=== PATIENT | female | born 1945 | race Caucasian/White ===

== ENCOUNTER → 2022-03-01 11:34 | Outpatient (CLI) | payer MEDICARE, SELFPAY ==
[2022-03-01 18:36] LABS: Add Manual Diff / Slide Review NO; Basophils Absolute Auto 0 /uL (0-100); Basophils Percent Auto 0.9 % (0-2); Eosinophils Absolute Auto 200 /uL (0-450); Eosinophils Percent Auto 3.6 % (2-4); Hematocrit 43.7 % (36-46); Hemoglobin 14.8 g/dL (12.0-16.0); Lymphocytes Absolute Auto 1600 /uL (1100-4500); Mean Corpuscular HGB Conc 33.9 % (30-36); Mean Corpuscular Hemoglobin 31.9 PG (26-34); Monocytes Absolute Auto 400 /uL (0-900); Monocytes Percent Auto 6.7 % (3-14); Neutrophils Absolute Auto 3200 /uL (1500-7000); Neutrophils Percent Auto 59.8 % (50-75); Platelet Count 267 X10^3/uL (150-400); Red Blood Cell Count 4.65 X10^6/uL (4.0-5.2); White Blood Cell Count 5.4 X10^3/uL (4.5-11.0)
[2022-03-01 18:43] LABS: Alanine Aminotransferase 16 IU/L (<35); Albumin 3.6 g/dL (3.5-5.0); Albumin Globulin Ratio 1.1 (1.0-2.8); Alkaline Phosphatase 98 U/L (38-126); Aspartate Aminotransferase 26 IU/L (14-36); BUN Creatinine Ratio 11.3 (6-22); Bilirubin Total 0.6 mg/dL (0.2-1.3); Blood Urea Nitrogen 11 mg/dL (7-17); Calcium 9.2 mg/dL (8.4-10.2); Carbon Dioxide 25 mmol/L (22-32); Chloride 107 mmol/L (98-107); Cholesterol 222 mg/dL (140-199); Estimated Glomerular Filt Rate 55.8 mL/min (>60); Globulin 3.2 g/dL (1.7-4.1); Glucose 99 mg/dL (80-110); HDL Cholesterol 84 mg/dL (40-60); HEMOLYSIS < 15 (0-50); LDL Cholesterol Calculated 119 mg/dL (<100); Potassium 4.5 mmol/L (3.4-5.1); Sodium 140 mmol/L (137-145); Total Protein 6.8 g/dL (6.3-8.2); Triglycerides 93 mg/dL (35-150)
== END ==
PROVIDERS: PCP Physician Assistant; Referring Provider Physician Assistant; Visit Provider Physician Assistant
DX: Z13.220 Encounter for screening for lipoid disorders (principal); F33.9 Major depressive disorder, recurrent, unspecified; R03.0 Elevated blood-pressure reading, without diagnosis of hypertension
CPT/HCPCS: 80053; 80061; 85025

== ENCOUNTER → 2023-02-08 11:53 | Outpatient (CLI) | payer MEDICARE, SELFPAY ==
[2023-02-08 19:47] LABS: Alanine Aminotransferase 20 IU/L (<35); Albumin 3.6 g/dL (3.5-5.0); Albumin Globulin Ratio 1.1 (1.0-2.8); Alkaline Phosphatase 113 U/L (38-126); Aspartate Aminotransferase 26 IU/L (14-36); BUN Creatinine Ratio 12.4 (6-22); Bilirubin Total 0.6 mg/dL (0.2-1.3); Blood Urea Nitrogen 12 mg/dL (7-17); Calcium 9.4 mg/dL (8.4-10.2); Carbon Dioxide 30 mmol/L (22-32); Chloride 103 mmol/L (98-107); Estimated Glomerular Filt Rate > 60 mL/min (>60); Globulin 3.3 g/dL (1.7-4.1); Glucose 89 mg/dL (80-110); HEMOLYSIS < 15 (0-50); Potassium 4.4 mmol/L (3.4-5.1); Sodium 139 mmol/L (137-145); Total Protein 6.9 g/dL (6.3-8.2)
== END ==
PROVIDERS: PCP Physician Assistant; Visit Provider Physician Assistant
DX: F33.9 Major depressive disorder, recurrent, unspecified (principal); R03.0 Elevated blood-pressure reading, without diagnosis of hypertension
CPT/HCPCS: 80053

== ENCOUNTER → 2023-04-03 11:55 | Outpatient (CLI) | payer MEDICARE, SELFPAY ==
[2023-04-03 19:54] LABS: Add Manual Diff / Slide Review NO; Basophils Absolute Auto 0 /uL (0-100); Basophils Percent Auto 0.9 % (0-2); Eosinophils Absolute Auto 200 /uL (0-450); Hematocrit 42.9 % (36-46); Hemoglobin 14.6 g/dL (12.0-16.0); Lymphocytes Absolute Auto 1500 /uL (1100-4500); Lymphocytes Percent Auto 27.4 % (25-40); Mean Corpuscular Hemoglobin 31.6 PG (26-34); Mean Corpuscular Volume 92.9 fL (80-100); Monocytes Absolute Auto 500 /uL (0-900); Monocytes Percent Auto 8.3 % (3-14); Neutrophils Absolute Auto 3200 /uL (1500-7000); Neutrophils Percent Auto 59.4 % (50-75); Platelet Count 289 X10^3/uL (150-400); Red Blood Cell Count 4.61 X10^6/uL (4.0-5.2); Red Cell Distribution Width 13.6 % (11.6-14.8); White Blood Cell Count 5.4 X10^3/uL (4.5-11.0)
[2023-04-03 20:05] LABS: BUN Creatinine Ratio 12.9 (6-22); Blood Urea Nitrogen 12 mg/dL (7-17); Calcium 9.3 mg/dL (8.4-10.2); Carbon Dioxide 29 mmol/L (22-32); Chloride 103 mmol/L (98-107); Estimated Glomerular Filt Rate > 60 mL/min (>60); Glucose 89 mg/dL (80-110); HEMOLYSIS < 15 (0-50); Potassium 4.5 mmol/L (3.4-5.1); Sodium 138 mmol/L (137-145)
[2023-04-04 22:38] LABS: x Labcorp Estim. Avg Glu (eAG) 120 mg/dL (.); x Labcorp Hemoglobin A1c 5.8 % (4.8-5.6)
== END ==
PROVIDERS: PCP Physician Assistant; Visit Provider Orthopaedic Surgery Foot and Ankle Surgery
DX: Z01.812 Encounter for preprocedural laboratory examination (principal); R73.9 Hyperglycemia, unspecified
CPT/HCPCS: 80048; 83036; 85025

== ENCOUNTER → 2023-05-28 09:08 | Outpatient (CLI) | payer MEDICARE, MEDICAID, SELFPAY ==
--- NOTE | 2023-05-28 | DI.NM.S_ITS ---
PROCEDURE: NM ELIZABETH PERF SPECT R&S PHARM Rest and pharmacological stress myocardial perfusion SPECT with gated imaging and ejection fraction RADIOPHARMACEUTICAL: 12.3 mCi Tc-99m tetrafosmin IV at rest and 27.5 mCi Tc-99m tetrafosmin IV at peak effect of pharmacological stress. A [id number]-[id number] was performed. INDICATIONS: Abnormal electrocardiogram [ECG] [EKG] TECHNIQUE: Radiopharmaceutical was injected at peak stress test, and also at rest. SPECT images were obtained. SPECT myocardial perfusion images were displayed in short axis, horizontal long axis, and vertical long axis views. Gated images were reviewed using Dwolla software. COMPARISON: None. CARDIAC STRESS: A pharmacologic stress test was performed under the supervision of an attending staff, using an infusion of regadenoson 0.4 mg IV. Hemodynamic data: There is normal blood pressure and heart rate response to pharmacologic stress. Symptoms: The patient denied anginal chest pain. EKG: No diagnostic changes of ischemia; no ectopy. FINDINGS: Raw data: There is good myocardial uptake of radiotracer. No significant motion artifacts. Wxzn-is-ajrre ratio is 0.47 (normal is less than 0.38 for tetrafosmin tracer). Left ventricle function: Gated images demonstrate normal left ventricular wall thickening. No segmental wall motion abnormalities. No transient ischemic dilation; TID is 0.82 (normal less than 1.3). Left ventricle resting end diastolic volume is 55 mL. Left ventricle stress ejection fraction is >75%; normal range is above 45%. Myocardial perfusion: There is normal distribution of activity in the right and left ventricular myocardium. No fixed or reversible perfusion defects. IMPRESSION: Low risk study. No evidence of pharmacologic ischemia or scar. Hyperdynamic LV function. Dictated by: Shena Guerrier D.O. on 05/28/2023 at 16:47 Approved by: Shena Guerrier D.O. on 05/28/2023 at 16:50
== END ==
PROVIDERS: PCP Physician Assistant; Referring Provider Internal Medicine Cardiovascular Disease; Visit Provider Internal Medicine Cardiovascular Disease
DX: R94.31 Abnormal electrocardiogram [ECG] [EKG] (principal)
CPT/HCPCS: 78452; 93017; A9502; J2785

== ENCOUNTER 2023-07-20 09:59 | Day surgery (SDC) | payer MEDICARE, SELFPAY ==
[2023-07-02 07:12] VITALS: BMI 27.8
[2023-07-20] VITALS (15 sets, daily range): BP systolic 113–144; BP diastolic 68–86; PULSE 56–99; RESP 12–17; TEMP 36.4–36.7; O2SAT 90–98; BMI 27.8; BMI 30.5
--- NOTE | 2023-07-20 06:00 | DI.RAD.S_ITS ---
PROCEDURE: XR KNEE RT 1TO2V INDICATIONS: postop TECHNIQUE: 2 view(s) of the knee acquired. COMPARISON: [facility] ([facility]), CR, XR KNEE RT 3V, 02/13/2023, 8:34. FINDINGS: Bones: Patient is status post knee joint arthroplasty. Hardware components are in expected positions. Visualized bony structures are intact. Soft tissues: Overlying postoperative changes are noted. IMPRESSION: Normal alignment after right total knee arthroplasty. Dictated by: Kenneth Mayers M.D. on 07/20/2023 at 16:15 Approved by: Kenneth Mayers M.D. on 07/20/2023 at 16:15
[2023-07-20] MEDS: ACETAMINOPHEN 325 MG TABLET 975 MG PO (10:49)
[2023-07-20] MEDS: CELECOXIB 200 MG CAPSULE PO (10:50)
[2023-07-20] MEDS: LACTATED RINGERS 1,000 ML 42 ML IV ×2 (10:50→13:20)
[2023-07-20] MEDS: PREGABALIN 75 MG CAPSULE PO (10:50)
--- NOTE | 2023-07-20 12:02 | PM.PREOP ---
Pre-operative Note Interval Note History & Physical reviewed/Exam performed by Physician: Yes Changes to H&P: No
--- NOTE | 2023-07-20 12:23 | P.OP_ITS ---
Operative Date/Time/Diagnoses Date of procedure: 07/20/23 Time of procedure: 12:30 Pre-op diagnosis: Arthritis right knee Post-op diagnosis: same Procedure & Clinicians Procedure: Total knee arthroplasty right CPT code 37011 Same procedure as scheduled: Yes Indications: The patient is a 78-year-old female with end-stage [id number] knee arthritis. The patient has a significant varus knee arthritis. They have failed conservative treatment with activity modifications, injections, physical therapy and bracing. They has been indicated for total knee replacement. The risks and benefits of the procedure have been discussed with the patient even opportunity to ask questions. The risks of surgery include but are not limited to infection , malunion, nonunion, fracture, loosening, persistence of pain, damage to nerves and blood vessels, need for additional procedures, DVT, PE, cardiopulmonary complications and . The patient expressed a thorough understanding of the risks and benefits of surgery and has elected to proceed. Consent was signed in the office. During the operation the services of physician surgical scrub technician were medically indicated and necessary to provide the exposure of the operative site for the surgical procedure and to maintain the limb in a proper position to carry out the procedure safely and efficiently. Without a qualified syrup mixer assistant being present this would extend the operative procedure and would have made the procedure more technically difficult to perform. The surgical scrub technician was medically necessary for the proper positioning, retraction and manipulation of the limb, proper exposure, and manipulation of the tissue for implantation implants and closure. Surgeon: Lidia Escoto Supervisor: Laura Frost Anesthesia Type: General, Spinal and Local Operative Notes Findings: End-stage varus knee arthritis right Closure Type: primary Specimen(s): none sent Prosthetic devices, grafts, tissues, transplants, or devices: Fragoso and nephew journey II BCS cobalt chromium Femur cobalt chromium size 6 Tibia size 5 Poly 12 mm Patella 32 x 9 mm Estimated Blood Loss (mL): 50 Blood products transfused: none Tourniquet time (min): 82 Procedure in detail: The patient was seen in the preoperative area where the patient and site of surgery were identified in the operative knee was marked informed consent confirmed. This was the right knee. Patient received the appropriate preoperative antibiotics this was 2 g of Ancef. And other preoperative medications and was taken to the operating room placed on operating table in the supine position. Spinal anesthetic were administered. The operative extremity was then prepped and draped in the standard sterile fashion with a nonsterile tourniquet high on the thigh. Patient was placed on the green foam bolsters. A lateral post was placed at the level of the proximal thigh /trochanter area as a lateral post. Formal time-out procedure was performed confirming the patient's side and site of surgery and administration of appropriate preoperative antibiotics and implants were in the room accounted for. All were in agreement. Patient received a preoperative dose of tranexamic acid and then a 2nd dose at tourniquet release Patient was prepped and draped in the standard sterile fashion and the foot was placed into the leg rosado. This was taken into high flexion and the incision was marked out over the anterior knee to the level of the medial tubercle tubercle. The Esmarch was then used for exsanguination and the tourniquet was inflated to 250 mmHg. Was made through the skin and subcutaneous tissue in high flexion this was then brought down into 30? of flexion for the medial parapatellar arthrotomy. A marker pen was used to saulo the arthrotomy site for later repair. Joint fluid was evacuated. The anterior osteophytes and soft tissues were removed. Routine medial release was initially made along the medial proximal tibia with Bovie. The patella was 1st cut using the saw sized and prepped and then subluxed throughout the case and protected. The leg was then taken into extension and the patella was everted and the patella was cut to accommodate the patellar button. This was sized to a 32 mm button for a 9 mm thickness to recreate the original dimensions of the patella. Poly was removed and the protector replaced and the patella was subluxed and the knee was taken back up into flexion and attention was returned to the femur. Then the rotational landmarks of Whitesides line and the trans epicondylar axis were marked on the femur with electrocautery. Then the intramedullary guide for the femur was created. The distal femoral cut was made in 6? of valgus using the intramedullary guide with the cut setting on 0+ as the patient did not have a preoperative flexion contracture. The ACL and PCL released. The proximal tibia was then cut using the intramedullary guide, taking 9 mm off the less involved side this was the lateral plateau. The Sina wing was used to check the slope through the guide. Second pass was made through the tibial cut guide with the saw after the cut tibia was removed plane down about 1 more mm and further smooth then the resection surface. In extension remainders of the medial and lateral menisci were removed. The extension flexion gaps were then checked using both the flexion extension blocks. And was selected for a 12mm poly femur was then sized and the rotation set using the posterior condyle referencing 3? of external rotation. This measured a size 6. Cut block was then placed and the anterior, posterior and chamfer cuts were then made. The posterior osteophytes and soft tissues were then removed. Then in extension the posterior capsule was injected with a mixture of 40 mL of 0.25% Marcaine and 20 mL of Exparel care to avoid excessive injection posterior laterally. The remainder of this was saved for the capsule and subcutaneous tissue and placed during cement curing. Attention was then returned to the tibia and this was prepared with the rotation set by the extramedullary guide. Lined up with the tibial crest and the 2nd toe. The tibial trial was then pinned in place and the trial femoral components were placed. Then the intercondylar notch was cut through the femoral trial to create the box this was done with the distal than the proximal drill and then the box cut distally and then proximally. Next the insert was placed and the trial poly placed. This was stable in flexion and extension and there was a 0- 135 degree range of motion. Tibia size 5. The tibia was then finished with the drill and flange cuts and then this was removed. All trials were removed. The wound and bone was irrigated with pulsatile lavage. This was then dried with a sponge. The components were verified and opened and the cement was mixed. Cement was applied to the components and then to the bone then the tibia was cemented in place 1st followed by the femur then the patella. Excess cement was removed. With care looking around the back of the knee. Remainder of the injection was injected around the capsule. trial poly was placed back in the leg was placed into extension for the patellar cementing. After this was cured approximately 15 minutes later and the dilute Betadine solution was placed for at least 3 minutes in the wound this was then irrigated out and the final poly was placed. This was a 12 mm poly. The tourniquet was released hemostasis was achieved. Final 1 g of tranexamic acid was given IV at the time of tourniquet release. The capsule was closed with 1. Ethibond suture. Subcutaneous layer was closed with 3-0 Vicryl suture. Skin was closed with a running V lock suture Stratafix Monocryl type suture and Dermabond. An sirisha dressing was placed given this patient's requirements of strong anticoagulation. An Andre wrap was applied. Anesthetic was terminated the patient was woken from anesthesia and taken to recovery room in good condition. There no immediate complications from this procedure. The patient will be maintained on a standard total knee replacement protocol with weight-bearing as tolerated. Complications: none Post-operative Condition: stable Plan for aftercare: Full weight-bearing range of motion as tolerated work with physical therapy. Discharge home when stable.
--- NOTE | 2023-07-20 12:34 | SUR.OPER ---
Supine on padded OR bed. Pillow under head, arms secured on padded armboards <90 degree abduction. Safety belt across torso. Non-operative leg secured with tape over blanket over lower leg. Operative leg secured in Danilo positioner and in control of the Surgeon. Foam padded brace at thigh of operative leg.
[2023-07-20] MEDS: CEFAZOLIN 2 GM/100 ML PREMIX 100 ML IV ×2 (12:50→20:32)
[2023-07-20] MEDS: TRANEXAMIC ACID 1,000 MG VIAL 1000 MG INJ ×2 (13:38→14:18)
[2023-07-20] MEDS: BUPIVACAINE LIPOSOME 266 MG/20 ML VIAL INJ (13:39)
[2023-07-20] MEDS: BUPIVACAINE 0.25% (PF) 60 ML, EPINEPHrine 0.3 MG INJ (13:40)
[2023-07-20] MEDS: SODIUM CHLORIDE IRRIG SOLUTION 250 ML, POVIDONE-IODINE SPONGE STICKS 1 APPLIC IRR (13:42)
[2023-07-20] MEDS: HYDROCODONE/ACET 5/325 TABLET 1 TAB PO ×2 (14:59→15:30)
[2023-07-20] MEDS: hydrOXYzine pamoate 25 MG CAPSULE PO ×2 (14:59→20:28)
[2023-07-20] MEDS: HYDROMORPHONE 1 MG INJ IV ×2 (15:00→15:10)
[2023-07-20] MEDS: ACETAMINOPHEN 325 MG TABLET 650 MG PO ×2 (16:10→20:35)
[2023-07-20] MEDS: LACTATED RINGERS 1,000 ML 100 ML IV (16:11)
--- NOTE | 2023-07-20 17:13 | PT.IIE ---
Addendum entered and electronically signed by Betina Todd PT 07/20/23 17:36: sent note to physician for signature on plan of care Original Note: Current Diagnoses Unilateral primary osteoarthritis, right knee (07/20/23) Surgery Performed Operation Date: 07/20/23 11:45 Actual Procedures p Total Knee Arthroplasty(Right) - Lidia Escoto MD Surgical History (Last Updated 02/06/23 @ 21:57 by Yvette Cohen) Anesthesia History of cataract removal with insertion of prosthetic lens (~2018) History of colonoscopy History of left knee replacement (~04/2010) History of tubal ligation (~1988) Medical History (Last Updated 06/26/23 @ 10:17 by Carlene Bermudez RN) Cataract Chicken pox (~1953) Chronic back pain Colon cancer screening Gastritis (~2018) H/O urinary frequency History of back injury History of degenerative joint disease (~1998) History of gastritis History of urinary incontinence (~2014) Measles (~1955) Mumps (~1953) Opioid dependence Vertigo (~2017) Physical Therapy Inpatient Evaluation/Re-Eval M1 PT/OT-IP Prior Functional Status Start: 07/20/23 17:15 Freq: NEEDED Status: Active Protocol: Document 07/20/23 17:13 DLM (Rec: 07/20/23 17:36 DLM [id number]) Medical Review Prior Functional Status Medical History Reviewed Yes Diet/Fluid Consistency Regular Communication WFL, glasses, missing teeth Mobility and Gait Independent without a device, knee pain limited her distances Activities of Daily Living and IADL's Independent Prior Functional Level (Other details) chronic back pain from an old work injury She lives on [facility] Social History Household Members spouse Living Arrangements RV Number of Floors (Floors) One Floor Number of Stairs To Enter/Railing? 4 steps to enter with rail, 2 steps inside the RV to bed and bathroom Home Environment High Toilet,Walk in Shower Home Equipment Front Wheel Walker Additional Social History Comment she reports the FWW will only fit in the living room in the RV, she can hold furniture/ cabinets in other areas of the RV M2 PT-IP Current Condition Start: 07/20/23 17:15 Freq: NEEDED Status: Active Protocol: Document 07/20/23 17:13 DLM (Rec: 07/20/23 17:36 [facility] [id number]) Physical Therapy Current Condition Current Condition Evaluation Date 07/20/23 Treatment Diagnosis right Total knee arthroplasty, impaired gait Onset Date 07/20/23 M3 PT-IP Subjective Start: 07/20/23 17:15 Freq: NEEDED Status: Active Protocol: Document 07/20/23 17:13 DLM (Rec: 07/20/23 17:36 [facility] [id number]) Subjective Physical Therapy Visit Type Type Initial Evaluation Visit Start Time 16:45 Visit Stop Time 17:13 Total Visit Minutes 28 Number of DATA ENTRY ASSOCIATE Visits 0 Physical Therapy Visit Comments Patient Comments She reports no numbness in right leg at this time. The knee pain is 2-3/10 at rest. Patient Goals discharge home to her with her Spouse to assist Therapy Pain Assessment Pain When Pain Assessed During Mobility Pain Present Pain Present Pain Reported Location right knee Intensity 6 Scale Used Numeric (0 - 10) Description Aching,Tender,With Movement Pain Behaviors Guarding Pain Management Techniques Apply Cold,Re-positioning M4 PT-IP Mobility and Gait Start: 07/20/23 17:15 Freq: NEEDED Status: Active Protocol: Document 07/20/23 17:13 DL (Rec: 07/20/23 17:36 [facility] [id number]) PT-Bed Mobility Assessment Supine to Sit Supine to Sit Independent Sit to Supine Sit to Supine Standby Assistance,Minimal Assistance Scooting Scooting to Edge of Bed Independent PT-Transfer Assessment Sit to and From Stand Sit to and from Stand Contact Guard Assistance, Minimal Assistance,Use of Upper Extremities Equipment Transfer Assistive Device Gait Belt,Front Wheeled Walker Transfers Transfer Destination Bedside Commode Transfer Technique Stand Step Pivot Transfer Ability Level of Assist Contact Guard Assistance, Minimal Assistance,Use of Upper Extremities Comments Mobility Comments Pt sat on edge of bed. She wanted to try to urinate so she progressed to transfer the bedside commode. She was not able to void while on the commode. Mild decreased balance and right knee instability with initial standing up from bedside commode. Pt feeling mild to moderate light-headedness while on the commode. She returned to bed to rest. Vital signs back in bed: BP 127/64 and HR 60. Noted pt became pale and her speech was a little unclear when up and this all resolved when she returned to bed. Gait Assessment Comments Gait Comments pt light-headed when up and is not ready to progress to gait this visit. Stair Climbing Assessment Comments Stair Climbing Comments not ready for stair training this visit, needs to do stairs before going home PT-Balance Assessment Sitting Balance and Reactions Static Sitting Balance Ability Good Dynamic Sitting Balance Ability Good Standing Balance and Reactions Static Standing Balance Ability Fair Dynamic Standing Balance Ability Fair Device Used FWW Comments Other Balance Tests/Deviations/Treatment her standing balance varied : during this visit from CG/SBA to min assist (all with the FWW) M5 PT-IP Objective Assessments Start: 07/20/23 17:15 Freq: NEEDED Status: Active Protocol: Document 07/20/23 17:13 DLM (Rec: 07/20/23 17:36 [facility] [id number]) Orientation Orientation/Cognition Level of Alertness Alert Orientation Name,Age,Birthday,Month,Date, Year,Day of Week,Place, Situation Language Function Ability No Deficits Noted Safety Awareness Understands Safety Issues Memory Description No Deficits Noted Comments she has her glasses on Gross Range of Motion Upper Extremity ROM Assessment Within Functional Limits Lower Extremity ROM Assessment Right Impaired Impairments knee extension in bed is lacking 20 degrees of extension with complaints of pain in posterior knee, knee flexion sitting is at least 90 degrees Strength Upper Extremity Strength Assessment Within Functional Limits Lower Extremity Strength Assessment Right Impaired Hip needs assist to lift LE off bed Knee seated knee ext 3-/5 Ankle DF 5/5 Comments Strength Comments pain limits right LE strength Coordination Assessment Gross Coordination Gross Coordination WNL Sensation Assessment Sensation Gross Sensation WNL Muscle Tone Muscle Tone WNL Yes M6 PT-IP Treatment Start: 07/20/23 17:15 Freq: NEEDED Status: Active Protocol: Document 07/20/23 17:13 DLM (Rec: 07/20/23 17:36 [facility] [id number]) Physical Therapy Treatment Exercises Exercises Ankle Pumps Education Education Provided Weight Bearing Status,Safety Other Treatments Other Treatment Performed Her Spouse is present this visit M7 PT-IP Assessment and Plan Start: 07/20/23 17:15 Freq: NEEDED Status: Active Protocol: Document 07/20/23 17:13 DLM (Rec: 07/20/23 17:36 [facility] [id number]) PT Summary Assessment and Plan Potential Rehabilitation Potential Good Status of Condition at Evaluation Evolving Summary Impairments Pain,ROM,Strength,Balance,Bed Mobility,Transfers,Gait, Activity Tolerance Assessment Summary Mishel is alert and resting in bed. Her is present today. She was able to sit on the edge of the bed and progress to a transfer onto the bedside commode. She was not able to void while up. She became light-headed while up and returned to bed to manage her symptoms. Pt left in bed with dinner arrival. The Nurses aide was notifed of patients light-headedness when getting up and cautioned to monitor closely with activity. Pt is not safe for discharge home today. Anticipate she will be able to discharge home tomorrow if she continues to progress well. She has a supportive Spouse to help at discharge. She needs to be able to get up 4 steps to get into her RV. Goals Bed Mobility Goal Independent Transfer Goal Independent,Front Wheeled Walker Gait Goal Standby Assistance,Front Wheel Walker Gait Distance 150 feet Other Goals Up/down 4 steps with rail and CG assist Days to Meet Goals 2 Frequency of Treatment Frequency Of Treatment Twice a Day Treatment Plan Physical Therapy Treatment Plan Bed Mobility Training,Transfer Training,Gait Training, Therapeutic Exercise,Balance Retraining,Post Op Education, Discharge Planning,Hot or Cold Pack,Neuromuscular Re-ed Other Recommendations and Next Treatment education to manage gait in RV Focus which may be hard to fit the FWW Precautions Other Precautions fall risk post-op Weight Bearing Status Weight Bearing Status Weight Bear as Tolerated Allowed Weight Bearing Amount (enter % right LE or #) (%) Recommendations To Nursing Amount of Assist Needed 1 Person Assist Discharge Recommendations PT Discharge Recommendations Home with Assistance, Outpatient PT Other Discharge Recommendations not ready to go home yet today Transportation Needs at Discharge Private Vehicle
[2023-07-20] MEDS: DOCUSATE 100 MG CAPSULE PO (20:28)
[2023-07-20] MEDS: OXYCODONE IR 10 MG TABLET PO (20:28)
[2023-07-20] MEDS: OXYBUTYNIN 5 MG TABLET PO (20:29)
[2023-07-20] MEDS: DULOXETINE 30 MG CAPSULE 60 MG PO (20:32)
[2023-07-20] MEDS: ASPIRIN EC 81 MG TABLET PO (20:33)
[2023-07-21] MEDS: OXYCODONE IR 10 MG TABLET PO ×2 (02:19→11:40)
[2023-07-21] MEDS: ACETAMINOPHEN 325 MG TABLET 650 MG PO ×2 (02:19→08:25)
[2023-07-21] MEDS: LACTATED RINGERS 1,000 ML 100 ML IV (02:24)
[2023-07-21] MEDS: CEFAZOLIN 2 GM/100 ML PREMIX 100 ML IV (04:45)
[2023-07-21 08:08] VITALS: BP 118/66; PULSE 72; RESP 18; TEMP 36.6; O2SAT 97
[2023-07-21] MEDS: ASPIRIN EC 81 MG TABLET PO (08:25)
[2023-07-21] MEDS: OXYBUTYNIN 5 MG TABLET PO (08:25)
[2023-07-21] MEDS: DOCUSATE 100 MG CAPSULE PO (08:25)
--- NOTE | 2023-07-21 08:27 | PM.DS.1 ---
History of Present Illness History of Present Illness Date Patient Seen: 07/21/23 Time Patient Seen: 08:27 Chief complaint: OPB Narrative: Operative Date/Time/Diagnoses Date of procedure: 07/20/23 Time of procedure: 12:30 Pre-op diagnosis: Arthritis right knee Post-op diagnosis: same Procedure & Clinicians Procedure: Total knee arthroplasty right CPT code 41281 Same procedure as scheduled: Yes Indications: The patient is a 78-year-old female with end-stage [id number] knee arthritis.? The patient has a significant varus knee arthritis. They have failed conservative treatment with activity modifications, injections, physical therapy and bracing.? They has been indicated for total knee replacement.? The risks and benefits of the procedure have been discussed with the patient even opportunity to ask questions.? The risks of surgery include but are not limited to infection, malunion, nonunion, fracture, loosening, persistence of pain, damage to nerves and blood vessels, need for additional procedures, DVT, PE, cardiopulmonary complications and .? The patient expressed a thorough understanding of the risks and benefits of surgery and has elected to proceed.? Consent was signed in the office. During the operation the services of physician surgical services manager were medically indicated and necessary to provide the exposure of the operative site for the surgical procedure and to maintain the limb in a proper position to carry out the procedure safely and efficiently.? Without a qualified assistant baseball coach being present this would extend the operative procedure and would have made the procedure more technically difficult to perform.? The surgical services manager was medically necessary for the proper positioning, retraction and manipulation of the limb, proper exposure, and manipulation of the tissue for implantation implants and closure. Surgeon: Lidia Escoto Metal Wire Coating Operator: Laura Frost Anesthesia Type: General, Spinal and Local Operative Notes Findings: End-stage varus knee arthritis right Closure Type: primary Specimen(s): none sent Prosthetic devices, grafts, tissues, transplants, or devices: Fragoso and nephew journey II BCS cobalt chromium Femur cobalt chromium size 6 Tibia size 5 Poly 12 mm Patella 32 x 9 mm Estimated Blood Loss (mL): 50 Blood products transfused: none Tourniquet time (min): 82 Discharge Providers Provider Discharge Date: 07/21/23 Primary care physician: Aspen Goodson PA-C Consults: 07/20/23 06:00 Consult to Anesthesiology Routine Comment: Consulting Provider: Anesthesiologist Reason for consultation: Regional block for post operative pain control 07/20/23 15:47 Consult to Discharge Planning Routine Comment: Consult to Occupational Therapy Evaluate & Treat Comment: Physician Instructions: Evaluate and treat Consult to Physical Therapy Evaluate & Treat Comment: home today or tomrrow am Physician Instructions: postop TKA protocol Discharge provider: Laura Frost PA-C Summary Hospital Course Discharge Diagnosis: Right knee osteoarthritis, s/p right total knee arthroplasty Hospital Course: Ms Howard's hospital course was unremarkable. On the morning of POD# 1, she was feeling well and wanted to go home. She was eating and voiding without difficulty and her pain was well-controlled with oral medication. She was evaluated by PT the previous day, and at that time they did not feel she was ready for discharge. Exam Vital Signs (past 8 hours): - 07/21/23 08:08 Temperature 97.8 F Pulse Rate 72 Respiratory Rate 18 Blood Pressure 118/66 Pulse Oximetry 97 Oxygen Flow Rate 0 Oxygen Delivery Method Room Air Oxygen Flow Rate 0 Narrative Exam Narrative: 5/5 strength in hip flexors, quadriceps, hamstrings, DF, PF, EHL on right. Sensation to light touch intact throughout RLE. Calf soft, compressible, nontender. Aquacel dressing w/ scant bloody drainage proximally, intact. [facility] Medical History (Updated 06/26/23 @ 10:17 by Carlene Bermudez RN) Cataract Chicken pox (~1953) Chronic back pain Colon cancer screening Gastritis (~2018) H/O urinary frequency History of back injury History of degenerative joint disease (~1998) History of gastritis History of urinary incontinence (~2014) Measles (~1955) Mumps (~1953) Opioid dependence Vertigo (~2017) Surgical History (Updated 02/06/23 @ 21:57 by Yvette Cohen) Anesthesia History of cataract removal with insertion of prosthetic lens (~2018) History of colonoscopy History of left knee replacement (~04/2010) History of tubal ligation (~1988) Family History (Updated 02/06/23 @ 21:58 by Yvette Cohen) Father Hypertension Stroke Mother Stroke Sister Parkinson's disease Diabetes mellitus Dementia Grandfather History of heart disease Grandmother History of heart disease Grandfather History of heart disease Grandmother Cancer Social History (Updated 10/18/21 @ 18:45 by Aspen Goodson PA-C) marital status: household members: spouse lives independently: No (5th wheel) caregiver/support person: No housing: other eleln/muslim: [employer] Smoking Status: Never smoker alcohol intake: current Discharge Assessment & Plan Assessment and Plan Assessment: Right knee osteoarthritis, s/p right total knee arthroplasty Plan of Treatment: Discharge after PT today if PT agrees. Pt has already received rxs for pain medication. ASA BID for VTE prophylaxis, outpt PT, f/u in office in 2 weeks as scheduled. Discharge Plan Discharge Plan Patient Disposition: Home Discharge orders & Medications Discharge Orders: Discharge (Order); Ordered 07/21/23 Ordered By: Luara Frost Prescriptions: New ondansetron HCl 4 mg tablet 4 mg PO Q8H PRN (Reason: nausea and vomiting) Qty: 7 1RF Continued duloxetine 60 mg capsule,delayed release(DR/EC) 60 mg PO BEDTIME Rx Instructions: TAKE ONE CAPSULE BY MOUTH ONCE DAILY meloxicam 15 mg tablet 15 mg PO DAILY oxybutynin chloride 5 mg tablet 5 mg PO BID Qty: 180 3RF Follow up/Referrals: Aspen Goodson PA-C [Primary Care Provider] - Lidia Escoto MD [Physician] - As previously scheduled (Follow up with Dr Escoto on 08/01/2023 @ 11:10 am at [facility] in [place].) Diet/Activity/Treatments Diet: Diet as Tolerated Activity: Walk frequently! Cold/Heat Therapy: Ice to knee as needed for pain. Skin/Wound/Dressing Care Report to your healthcare provider any signs of infection, such as:: chills, fever, night sweats, unusual drainage and unusual redness Dressing: May shower. Leave Aquacel dressing in place until follow up in office. No bathing or otherwise soaking incision. Call the office if the dressing becomes saturated inside. Visit Report/Discharge Packet Instructions: DI for Knee Replacement Stand Alone Forms: Patient Portal/API, Surgery Discharge Discharge Data Primary Care Provider: Aspen Goodson Attending Provider: Lidia Escoto Quality VTE Deep Vein Thrombosis/Pulmonary Embolism Present on Admission: No
--- NOTE | 2023-07-21 09:00 | PT.IPTN ---
Current Diagnoses Unilateral primary osteoarthritis, right knee (07/20/23) Surgery Performed Operation Date: 07/20/23 11:45 Actual Procedures p Total Knee Arthroplasty(Right) - Lidia Escoto MD Physical Therapy Treatment Note M2 PT-IP Current Condition Start: 07/20/23 17:15 Freq: NEEDED Status: Active Protocol: Document 07/20/23 17:13 DLM (Rec: 07/20/23 17:36 DLM [id number]) Physical Therapy Current Condition Current Condition Evaluation Date 07/20/23 Treatment Diagnosis right Total knee arthroplasty, impaired gait Onset Date 07/20/23 M3 PT-IP Subjective Start: 07/20/23 17:15 Freq: NEEDED Status: Active Protocol: Document 07/21/23 09:48 TS (Rec: 07/21/23 10:08 TS [id number]) Subjective Physical Therapy Visit Type Type Treatment Note Visit Start Time 09:00 Visit Stop Time 09:44 Total Visit Minutes 44 Number of INSURANCE SERVICE REPRESENTATIVE Visits 1 Physical Therapy Visit Comments Patient Comments Pt reports she feels better this morning and has not been lightheaded, pt agreeable to PT. Patient Goals discharge home to her with her Spouse to assist Therapy Pain Assessment Pain When Pain Assessed During Mobility Pain Present Pain Present Pain Reported Location right knee Intensity 4 Scale Used Numeric (0 - 10) Description Aching,Tender,With Movement Pain Behaviors Guarding Pain Management Techniques Apply Cold,Re-positioning M4 PT-IP Mobility and Gait Start: 07/20/23 17:15 Freq: NEEDED Status: Active Protocol: Document 07/21/23 09:48 TS (Rec: 07/21/23 10:08 TS [id number]) PT-Bed Mobility Assessment Supine to Sit Supine to Sit Independent Scooting Scooting to Edge of Bed Independent PT-Transfer Assessment Sit to and From Stand Sit to and from Stand Contact Guard Assistance,Use of Upper Extremities Equipment Transfer Assistive Device Gait Belt,Front Wheeled Walker Comments Mobility Comments Pt found resting in bed, BP taken prior to mobility 136/68 , pt agreeable to PT. Supine to sit from flat bed Ind with BUE support pushing from bed, pt scooted to EOB Ind with no cueing. Sit to stand w/FWW CGA for slight psoterior lean, she denied any dizziness in standing. She ambulatd ~175' SBA with management of IV pole and w/c behind pt. She has a slow step to gait with heavy UE assist for offloading of weight on RLE. She performed stairs x3 ascending/descending CGA with B handrail assist, provided education and instructed caregiver and pt on proper stair sequencing. Pt was brought back to room in w/ c, was left with spouse in room, RN notified. Gait Assessment Gait Gait Assistance Required: Standby Assistance Distance (Feet) 175 Able to Maintain Weight Bearing Status Yes During Gait Assistive Devices Assistive Device Gait Belt,Front Wheeled Walker Orthotic/Prosthetic Devices or Brace: No Gait Deviations General Gait Pattern Antalgic,Decreased Stride Length,Decreased Feet Clearance,Step-to Gait Factors Limiting Gait Function Factors Limiting Gait Function Decreased Activity Tolerance, Decreased Strength,Limited Range of Motion,Pain,Poor Balance Comments Gait Comments See mobility comments. Stair Climbing Assessment Evaluation Level of Assist On Stairs Contact Guard Assistance Devices Stair Climbing Assistive Devices Left Railing,Right Railing Technique/Endurance Stair Climbing Direction Ascend and Descend Stair Climbing Technique Step to Step Number of Steps Climbed 3 Comments Stair Climbing Comments See mobility comments. PT-Balance Assessment Sitting Balance and Reactions Static Sitting Balance Ability Good Dynamic Sitting Balance Ability Good Standing Balance and Reactions Static Standing Balance Ability Good Dynamic Standing Balance Ability Fair Device Used FWW M5 PT-IP Objective Assessments Start: 07/20/23 17:15 Freq: NEEDED Status: Active Protocol: Document 07/20/23 17:13 DL (Rec: 07/20/23 17:36 DL [id number]) Orientation Orientation/Cognition Level of Alertness Alert Orientation Name,Age,Birthday,Month,Date, Year,Day of Week,Place, Situation Language Function Ability No Deficits Noted Safety Awareness Understands Safety Issues Memory Description No Deficits Noted Comments she has her glasses on Gross Range of Motion Upper Extremity ROM Assessment Within Functional Limits Lower Extremity ROM Assessment Right Impaired Impairments knee extension in bed is lacking 20 degrees of extension with complaints of pain in posterior knee, knee flexion sitting is at least 90 degrees Strength Upper Extremity Strength Assessment Within Functional Limits Lower Extremity Strength Assessment Right Impaired Hip needs assist to lift LE off bed Knee seated knee ext 3-/5 Ankle DF 5/5 Comments Strength Comments pain limits right LE strength Coordination Assessment Gross Coordination Gross Coordination WNL Sensation Assessment Sensation Gross Sensation WNL Muscle Tone Muscle Tone WNL Yes M6 PT-IP Treatment Start: 07/20/23 17:15 Freq: NEEDED Status: Active Protocol: Document 07/21/23 09:48 TS (Rec: 07/21/23 10:08 TS [id number]) Physical Therapy Treatment Education Education Provided Weight Bearing Status,Safety Other Treatments Other Treatment Performed Provided education on post-op packet including intensity/ frequency of exercise. M7 PT-IP Assessment and Plan Start: 07/20/23 17:15 Freq: NEEDED Status: Active Protocol: Document 07/21/23 09:48 TS (Rec: 07/21/23 10:08 TS [id number]) PT Summary Assessment and Plan Potential Rehabilitation Potential Good Summary Impairments Pain,ROM,Strength,Balance,Bed Mobility,Transfers,Gait, Activity Tolerance Progress Towards Goals Progressing Toward Goals Assessment Summary Pt is making good progress with her mobility this session . She continues to be Ind for bed mobility, requires extra time to bring RLE to EOB. She progressed her gait to ~175' SBA with a slow step to gait, has no LOB or buckling of knees. She progressed stairs to x3 CGA with B handrail assist. PT is recommending return home with assist from spouse and outpatient PT. Goals Bed Mobility Goal Independent Transfer Goal Independent,Front Wheeled Walker Gait Goal Standby Assistance,Front Wheel Walker Gait Distance 150 feet Other Goals Up/down 4 steps with rail and CG assist Days to Meet Goals 2 Frequency of Treatment Frequency Of Treatment Twice a Day Treatment Plan Physical Therapy Treatment Plan Bed Mobility Training,Transfer Training,Gait Training, Therapeutic Exercise,Balance Retraining,Post Op Education, Discharge Planning,Hot or Cold Pack,Neuromuscular Re-ed Other Recommendations and Next Treatment education to manage gait in RV Focus which may be hard to fit the FWW Precautions Other Precautions fall risk post-op Weight Bearing Status Weight Bearing Status Weight Bear as Tolerated Allowed Weight Bearing Amount (enter % right LE or #) (%) Recommendations To Nursing Amount of Assist Needed 1 Person Assist Discharge Recommendations PT Discharge Recommendations Home with Assistance, Outpatient PT Other Discharge Recommendations not ready to go home yet today Transportation Needs at Discharge Private Vehicle
--- NOTE | 2023-07-21 13:13 | CM.DANOTE ---
Initial Discharge Assessment Note: Case reviewed, met with patient and her supportive spouse. Introduced self and role. Payer: Medicare and Medicaid PCP: 78 year old female who underwent a knee replacement yesterday. She did well with PT today and she has discharge orders. She is independent and lives with spouse in an RV on [facility] [facility]. Priority [place]. PLAN: Discharge home to care of spouse. Outpatient therapy scheduled. SEJ Discharge Planning/Care Management CM Discharge Assessment Start: 07/21/23 12:26 Freq: Status: Active Protocol: Document 07/21/23 13:12 SJ (Rec: 07/21/23 13:13 [id number]) Discharge Planning Assessment Assigned Vp Compliance Balnca Jimenez RN/JAYLANP Advance Directives? No History Provided By Patient,Medical Record Prior Living Arrangements RV Comment [facility] Household Members spouse Type of transporation used prior to Drives own vehicle admit Independent with ADL's Yes Is patient alert and oriented? Yes Caregiver for Another No DME Already Rented / Owned FWW / Walker Discharge Plan Home Community Services Physical Therapy Review Status In Process Next Review Type Continued Stay Review Pre-Anesthesia Assessment Start: 06/26/23 10:00 Freq: Status: Complete Protocol: Document 07/02/23 07:12 CAB (Rec: 06/26/23 10:47 [id number]) Pre-Anesthesia Assessment Preferred Name Mishel Patient Information Reviewed Via Phone Assessment Assessment Completed With Patient Diagnostic Results BMP/CMP,CBC,EKG Comment Labs/EKG @ 04/03/23 Primary Care Provider Aspen Goodson Specialist Seen Motor And Generator Brush Maker,Orthopedist Primary Language Estonian Preferred Language Estonian Certified Diabetes Educator Required No Height 177.8 cm Weight 87.997 kg Body Mass Index (BMI) 27.8 Hearing Ability Normal Visual Impairment Partially Limited Visual Assist Glasses Dentition Type Teeth, Broken,Teeth, Missing Barriers to Learning None Hx Anesthesia Reactions Yes: hx of N/V after colonoscopy Hx Family Anesthesia Reaction No Hx Malignant Hyperthermia No Hx Blood Transfusions No Hx Blood Transfusion Reaction No Anesthesia Review Requested No Display Department Manager No alcohol intake current alcohol intake frequency holidays/special occasions only Smoking Status Never smoker Substance Use Type other Comment hemp gummies Pain Present Pain Reported Musculoskeletal Symptoms Back Pain,Joint Pain,Joint Stiffness History of Falling (Recent or History of No ) Patient is completely paralyzed or No completely immobile Ambulatory Aid None/bed rest/nurse assist Prosthesis or Orthotic Device Front Wheel Walker Mental Status Oriented to own ability Comment Will milk pickup truck driver a walker for post op use Is patient on oxygen? No Does patient have CARLOS/SOB No Hx Sleep Apnea No CPAP/BIPAP use not prescribed Currently Taking a Beta Nicolle No Can You Climb a Flight of Stairs Without Yes SOB Hx Chest Pain No Hx SOB No Hx Syncope or Dizziness No Anti-Coagulant Therapy No Has a Motor And Generator Brush Maker Yes: patient had a work up secondary to an abnormal EKG Motor And Generator Brush Maker name Dr. Barrera Pre-op visit 05/04/23 Cardiac Testing Yes: Nuc stress test IH -Low risk study Hx Pacemaker/ICD No Pacemaker Rep Required? No Cardiac Clearance Received Not Applicable Diet Type At Home Vegetarian,Lactose Intolerant Dysphagia Yes: due to missing teeth has to chew well Gastrointestinal Symptoms Reflux Genitourinary Symptoms Frequency Chronic UTI No Bladder Pattern Frequency,Urgency Comment taking meds Diabetes No HgbA1C 5.8 Date 04/03/23 Patient No Lactating No Hx Drug Resistant Organism No Presence of External or Internal Medical left knee Devices Have you had any close contact with No someone diagnosed with COVID-19? Are you experiencing any of these No symptoms symptoms? Received a COVID vaccine? Yes Marital Status Lives With spouse Current Living Arrangements RV Comment 4 stairs to get in and 2 stairs to get into bedroom Number of Floors (Floors) One Floor Number of Stairs To Enter/Railing? 4 stairs to get in and 2 stairs to get into bedroom Support System Family Does the Patient Have Assistance After Yes Surgery Patient Discharge Plan Description Return Home Additional comment Patient lives on [employer] and will be coming on [employer] Feel[employer]umb[employer] Safe in Current Environment Yes Been Physically Hurt or Threatened By a No Person in Current Environment If Yes, Provider Notified No Do you have thoughts of harming yourself None or others? Are you currently considering suicide? No Do you have a plan to hurt yourself or No Plan others? Do You Have Any Spiritual Beliefs That No May Affect Your HC Choices? Do You Have Any Cultural Practices That No May Affect Your HC Choices? Spiritual Referral None Comment spiritual Who Can We Speak to About Patient's Care friends and family Identifying Code for Release of Patient declines to issue Information Health Care Proxy/Next of Kin Javi (spouse) Health Care Proxy Emergency Contact Name Javi (spouse) Emergency Contact Advance Directives? No Power of Options Trader No PAC Instructions Assistance for 24 hours post- op,Do not shave/clip surgical site,Durable medical equipment ,Medications to take/avoid, Nasal antibiotic,No ETOH/ petroleum product on skin DOS, NPO,Post-op transportation,Pre -surgical wash,Sturdy shoes/ comfortable clothes,Do not bring valuables and remove jewelry
== END 2023-07-21 13:30 | disposition home or self-care (01) ==
LOC: OR 10:01 → AC 15:17
PROVIDERS: PCP Physician Assistant; Referring Provider Orthopaedic Surgery Foot and Ankle Surgery; Visit Provider Orthopaedic Surgery Foot and Ankle Surgery
PROC: 0SRC0JZ Replacement of Right Knee Joint with Synthetic Substitute, Open Approach (ICD-10-PCS; CPT 27447; principal; 2023-07-20 11:45)
DX: M17.11 Unilateral primary osteoarthritis, right knee (principal); M21.161 Varus deformity, not elsewhere classified, right knee
CPT/HCPCS: 27447; 73560; 97116; 97162; 97530; C1776; C9290; J0171; J0690; J1170; J2250; J2704; J3010

== ENCOUNTER → 2024-01-31 08:01 | Outpatient (CLI) | payer MEDICARE, SELFPAY ==
[2024-01-28 13:08] VITALS: BMI 30.5
[2024-01-31 19:15] LABS: Hematocrit 43.3 % (36-46); Hemoglobin 14.5 g/dL (12.0-16.0); Mean Corpuscular HGB Conc 33.4 % (30-36); Mean Corpuscular Hemoglobin 30.7 PG (26-34); Mean Corpuscular Volume 91.9 fL (80-100); Platelet Count 315 X10^3/uL (150-400); Red Blood Cell Count 4.71 X10^6/uL (4.0-5.2); Red Cell Distribution Width 14.7 % (11.6-14.8); White Blood Cell Count 4.9 X10^3/uL (4.5-11.0)
[2024-01-31 19:37] LABS: Hemoglobin A1C% w Est Avg Glu 5.6 % (4.0-6.0)
[2024-01-31 20:23] LABS: Alanine Aminotransferase 20 IU/L (<35); Albumin 3.4 g/dL (3.5-5.0); Alkaline Phosphatase 111 U/L (38-126); Aspartate Aminotransferase 27 IU/L (14-36); BUN Creatinine Ratio 14.3 (6-22); Bilirubin Total 0.8 mg/dL (0.2-1.3); Blood Urea Nitrogen 13 mg/dL (7-17); Calcium 9.6 mg/dL (8.4-10.2); Carbon Dioxide 25 mmol/L (22-32); Chloride 110 mmol/L (98-107); Cholesterol 204 mg/dL (140-199); Estimated Glomerular Filt Rate > 60 mL/min (>60); Globulin 3.3 g/dL (1.7-4.1); Glucose 113 mg/dL (80-110); HDL Cholesterol 77 mg/dL (40-60); HEMOLYSIS < 15 (0-50); LDL Cholesterol Calculated 109 mg/dL (<100); Potassium 4.4 mmol/L (3.4-5.1); Sodium 139 mmol/L (137-145); Total Protein 6.7 g/dL (6.3-8.2); Triglycerides 91 mg/dL (35-150)
[2024-01-31 20:24] LABS: Neutrophils Absolute Manual 2842 /uL (3000-5900); Total Cells Counted 100
[2024-01-31 20:25] LABS: RBC Morphology Normal Morphology
== END ==
PROVIDERS: PCP Physician Assistant; Visit Provider Physician Assistant
DX: E78.00 Pure hypercholesterolemia, unspecified (principal); R73.9 Hyperglycemia, unspecified; Z79.899 Other long term (current) drug therapy; R94.4 Abnormal results of kidney function studies
CPT/HCPCS: 80053; 80061; 83036; 85025